=== PATIENT | male | born 1985 | race Hispanic/Latino ===

== ENCOUNTER 2018-10-24 13:25 | Emergency (ER) | payer MEDICAID, OTHER ==
[2018-10-24 14:16] LABS: BUN/Creatinine Ratio 19; Blood Urea Nitrogen 13 mg/dL (9-20); Calcium 9.2 mg/dL (8.4-10.2); Hemolysis Index 12
[2018-10-24 14:19] LABS: Basophils % (Auto) 0.2 % (0.0-1.8); Eosinophils # (Auto) 0.2 K/mm3 (0.0-0.4); Eosinophils % (Auto) 1.1 % (0.0-4.3); Hematocrit 46.1 % (35.5-45.6); Hemoglobin 15.1 gm/dl (11.8-15.2); Lymphocytes # (Auto) 2.3 K/mm3 (1.2-5.4); Lymphocytes % (Auto) 16.3 % (13.4-35.0); Mean Corpuscular HGB Conc 33 % (32-34); Mean Corpuscular Volume 96 fl (84-94); Monocytes # (Auto) 1.1 K/mm3 (0.0-0.8); Monocytes % (Auto) 7.5 % (0.0-7.3); Platelet Count 283 K/mm3 (140-440); Red Cell Distribution Width 14.2 % (13.2-15.2)
--- NOTE | 2018-10-24 14:44 | Emergency Department Report ---
ED Psych HPI - General Chief Complaint: Psych Stated Complaint: MH/HEARING VOICES Time Seen by Provider: 10/24/18 14:30 Source: patient Mode of arrival: Ambulatory Limitations: No Limitations - History of Present Illness Initial Comments: Patient is a 33-year-old male that presents to emergency room with complaints of auditory hallucinations and suicidal ideation without plan. Patient states his plan is to overdose. Patient states had a lot of problems with drugs and since quitting taking drugs her months ago he has been hearing voices and having thoughts of hurting himself. Patient states been off his psychiatric medications for years. Patient denies chest pain shortness of breath. Patient denies physical complaint. Patient denies visual hallucinations. MD Complaint: suicidal ideation, feels depressed -: Sudden Associated Psychiatric Symptoms: depression, suicidal ideation, auditory hallucinations History of same: Yes Quality: constant Improves With: none Worsens With: none Context: not taking psychiatric Associated Symptoms: denies other symptoms. denies: confusion, headache, shortness of breath, nausea, vomiting, syncope, insomnia Treatments Prior to Arrival: placed on mental he If Self Harm: admits thoughts of, has plan - Related Data Home Medications Medication Instructions Recorded Confirmed Last Taken BUPRENORPHINE hcl [Subutex] 8 mg SL TID 03/06/16 03/06/16 Unknown Citalopram [celeXA] 10 mg PO QDAY 03/06/16 03/06/16 Unknown Diazepam [Valium] 10 mg PO TID 03/06/16 03/06/16 Unknown risperiDONE [RisperDAL] 1 mg PO QDAY 03/06/16 03/06/16 Unknown Previous Rx's Medication Instructions Recorded Last Taken Type Citalopram [celeXA] 10 mg PO QDAY #30 tablet 03/06/16 Unknown Rx risperiDONE [RisperDAL] 1 mg PO QDAY #30 tablet 03/06/16 Unknown Rx Allergies Allergy/AdvReac Type Severity Reaction Status Date / Time No Known Allergies Allergy Verified 03/06/16 09:50 ED Review of Systems ROS: Stated complaint: MH/HEARING VOICES Other details as noted in HPI Constitutional: denies: chills, fever Eyes: denies: eye pain, eye discharge, vision change ENT: denies: ear pain, throat pain Respiratory: denies: cough, shortness of breath, wheezing Cardiovascular: denies: chest pain, palpitations Endocrine: no symptoms reported Gastrointestinal: denies: abdominal pain, nausea, diarrhea Genitourinary: denies: urgency, dysuria Musculoskeletal: denies: back pain, joint swelling, arthralgia Skin: denies: rash, lesions Neurological: denies: headache, weakness, paresthesias Psychiatric: depression, visual hallucinations, suicidal thoughts. denies: anxiety Hematological/Lymphatic: denies: easy bleeding, easy bruising ED Past Medical Hx - Past Medical History Previous Medical History?: Yes Hx Psychiatric Treatment: Yes (Schizophrenia) Additional medical history: schizophrenia. PTSD. fear of open spaces - Surgical History Past Surgical History?: Yes Additional Surgical History: hernia repair - Family History Family history: no significant - Social History Smoking Status: Current Every Day Smoker Substance Use Type: Heroin, Methamphetamines, Other - Medications Home Medications: Home Medications Medication Instructions Recorded Confirmed Last Taken Type BUPRENORPHINE hcl [Subutex] 8 mg SL TID 03/06/16 03/06/16 Unknown History Citalopram [celeXA] 10 mg PO QDAY 03/06/16 03/06/16 Unknown History Citalopram [celeXA] 10 mg PO QDAY #30 tablet 03/06/16 Unknown Rx Diazepam [Valium] 10 mg PO TID 03/06/16 03/06/16 Unknown History risperiDONE [RisperDAL] 1 mg PO QDAY 03/06/16 03/06/16 Unknown History risperiDONE [RisperDAL] 1 mg PO QDAY #30 tablet 03/06/16 Unknown Rx ED Physical Exam - General Limitations: No Limitations General appearance: alert, in no apparent distress - Head Head exam: Present: atraumatic, normocephalic - Eye Eye exam: Present: normal appearance - ENT ENT exam: Present: mucous membranes moist - Neck Neck exam: Present: normal inspection - Respiratory Respiratory exam: Present: normal lung sounds bilaterally. Absent: respiratory distress - Cardiovascular Cardiovascular Exam: Present: regular rate, normal rhythm. Absent: systolic murmur, diastolic murmur, rubs, gallop - GI/Abdominal GI/Abdominal exam: Present: soft, normal bowel sounds - Rectal Rectal exam: Present: deferred - Extremities Exam Extremities exam: Present: normal inspection - Back Exam Back exam: Present: normal inspection - Neurological Exam Neurological exam: Present: alert, oriented X3 - Psychiatric Psychiatric exam: Present: depressed, suicidal ideation - Skin Skin exam: Present: warm, dry, intact, normal color. Absent: rash ED Course Vital Signs 10/24/18 13:38 Temperature 97.8 F Pulse Rate 106 H Respiratory 18 Rate Blood Pressure 113/78 O2 Sat by Pulse 97 Oximetry - Reevaluation(s) Reevaluation #1: Discussed all results with patient. Patient was understanding. Patient is medically cleared. Patient will remain on a 1013 until accepted to appropriate psychiatric facility. 10/24/18 20:23 ED Medical Decision Making - Lab Data Result diagrams: 10/24/18 13:51 10/24/18 13:51 - Medical Decision Making Patient is 33-year-old male presents emergency room with complaints of suicidal ideation or plan. Patient was placed on 1013. Mental health consult done. Patient will remain on 1013 until accepted to appropriate psychiatric facility. Patient is medically clear. Patient's WBC is elevated and is most likely secondary to stress reaction or psychomotor agitation. Patient has no signs of infection. Patient has no symptoms of infection. - Differential Diagnosis suicidal ideation. Depression. Hallucinations Critical care attestation.: If time is entered above; I have spent that time in minutes in the direct care of this critically ill patient, excluding procedure time. ED Disposition Clinical Impression: Suicidal ideation, Auditory hallucinations Depression Qualifiers: Depression Type: unspecified Qualified Code(s): F32.9 - Major depressive disorder, single episode, unspecified Disposition: [id number]/TX-65 PSY HOSP/PSY UNIT Is pt being admited?: No Does the pt Need Aspirin: No Condition: Stable Referrals: PRIMARY CARE, [Primary Care Provider] - 2-3 Days Time of Disposition: 20:22
[2018-10-24 18:06] LABS: Bilirubin,Urine NEG (Negative); Blood,Urine NEG (Negative); Color,Urine Yellow (Yellow); Mucus,Urine FEW /HPF; Protein,Urine <15 mg/dL mg/dL (Negative); Urobilinogen,Urine < 2.0 mg/dL (<2.0)
[2018-10-24 18:14] LABS: Amphetamine Screen,Urine PRESUMPTIVE NEGATIVE; Benzodiazepines Screen,Urine PRESUMPTIVE NEGATIVE; Cannabinoid Screen,Urine PRESUMPTIVE NEGATIVE; Cocaine Screen,Urine PRESUMPTIVE NEGATIVE; Methadone Screen,Urine PRESUMPTIVE NEGATIVE; Opiate Screen,Urine PRESUMPTIVE NEGATIVE
--- NOTE | 2018-10-25 13:21 | Consultation ---
History of Present Illness - Reason for Consult Consult date: 10/25/18 Reason for consult: Mental Health Evaluation Requesting physician: ADEOLA SHI III - Chief Complaint Chief complaint: "I'm hearing voices" - History of Present Psychiatric Illness 33 y.o. white male who presented to the ER for SI's and and AH's. Today the patient is calm and cooperative during the assessment. He stated that the voices he's hearing have been constant the past several days telling him to kill himself. He stated that the voices has been an issue for him for a while. He stated that the voices was overwhelming yesterday. He stated, 'I don't know what's wrong with me." He stated that he took Risperdal in the past, but have not been complaint with his medication. He denies erratic sleep and a poor appetite. He would confirm or deny excessive energy nor SI's when asked. He denies HI's and VH's. He denies recent recreational drug use and alcohol consumption (etoh). Medications and Allergies Allergies Allergy/AdvReac Type Severity Reaction Status Date / Time No Known Allergies Allergy Verified 03/06/16 09:50 Home Medications Medication Instructions Recorded Confirmed Last Taken Type BUPRENORPHINE hcl [Subutex] 8 mg SL TID 03/06/16 10/25/18 Unknown History Citalopram [celeXA] 10 mg PO QDAY 03/06/16 10/25/18 Unknown History Diazepam [Valium] 10 mg PO TID 03/06/16 10/25/18 Unknown History risperiDONE [RisperDAL] 1 mg PO QDAY #30 tablet 03/06/16 10/25/18 Unknown Rx Past psychiatric history - Past Medical History Past Medical History: No medical history Past Surgical History: No surgical history - past Psychiatric treatment and history psychiatric treatment history: hx of substance abuse and inpatient psy settings in the past. Denies a fam psy hx. - Social History Social history: other (Homeless) Mental Status Exam - Vital signs Last Vital Signs Temp 97.6 F 10/25/18 08:40 Pulse 87 10/25/18 08:32 Resp 14 10/25/18 08:40 BP 109/74 10/25/18 08:32 Pulse Ox 97 10/25/18 08:32 - Exam Narrative exam: MSE: Appearance: calm Behavior: regular eye contact Speech: regular rate and tone Mood: "tired" Affect: congruent to mood Thought Process: circumstantial Thought Content: denies HI's and AVH's Motor Activity: ambulatory Cognition: A/O x3 Insight: variable Judgment: poor Results Result Diagrams: 10/24/18 13:51 10/24/18 13:51 Abnormal lab results 10/24/18 10/24/18 10/24/18 Range/Units 13:51 13:51 13:51 WBC (4.5-11.0) K/mm3 Hct (35.5-45.6) % MCV (84-94) fl [place] % (Auto) (0.0-7.3) % [place] # (0.0-0.8) K/mm3 Seg Neutrophils % (40.0-70.0) % Seg Neutrophils # (1.8-7.7) K/mm3 Creatinine 0.7 L (0.8-1.5) mg/dL Glucose 74 L (75-100) mg/dL Salicylates < 0.3 L (2.8-20.0) mg/dL Acetaminophen < 5.0 L (10.0-30.0) ug/mL 10/24/18 Range/Units 13:51 WBC 14.2 H (4.5-11.0) K/mm3 Hct 46.1 H (35.5-45.6) % MCV 96 H (84-94) fl [place] % (Auto) 7.5 H (0.0-7.3) % [place] # 1.1 H (0.0-0.8) K/mm3 Seg Neutrophils % 74.9 H (40.0-70.0) % Seg Neutrophils # 10.7 H (1.8-7.7) K/mm3 Creatinine (0.8-1.5) mg/dL Glucose (75-100) mg/dL Salicylates (2.8-20.0) mg/dL Acetaminophen (10.0-30.0) ug/mL All other labs normal. Assessment and Plan Assessment and plan: Impression: Unspecified Mood DO with psy features. Today the patient is calm and cooperative during the assessment. UDS is negative. DDx: R/O Bipolar DO, MDD with psychosis Recommendation/Plan: Continue 1013 and start Risperdal 1 mg PO HS for mood/psychosis. Discussed possible metabolic side effects of Risperidal with the patient. Dispo: The patient was referred to inpatient psy services. Will staff with Dr. Amber Mathis.
[2018-10-25] MEDS ORDERED: RisperDAL PO SCH (22:00)
[2018-10-26 07:32] VITALS: BP 107/61
--- NOTE | 2018-10-26 08:37 | Progress Note ---
Subjective - Reason for Consult Consult date: 10/26/18 Reason for consult: Psychiatry Follow-up - Chief Complaint Chief complaint: "The voices are no more" 33 y.o. white male who presented to the ER for SI's and and AH's. Today the patient is calm and cooperative during the assessment. He stated that the voices have "stopped." He stated that he had not been on his medication prior to his arrival to the ER 2 days ago. He stated that he plan to stay compliant with his medication and stay away from "street drugs." He denies Si/HI's and AVH's. He denies any side effects of his medication. Mental Status Exam - Vital signs Last Vital Signs Temp 98.2 F 10/26/18 07:30 Pulse 94 H 10/26/18 07:30 Resp 16 10/26/18 07:30 BP 107/61 10/26/18 07:30 Pulse Ox 97 10/26/18 07:30 - Exam Narrative exam: MSE: Appearance: calm, cooperative Behavior: regular eye contact Speech: regular rate and tone Mood: "much better" Affect: congruent to mood Thought Process: logial Thought Content: denies SI/HI's and AVH's Motor Activity: ambulatory Cognition: A/O x3 Insight: appropriate Judgment: appropriate Assessment and Plan Impression: Unspecified Mood DO with psy features. Today the patient is calm and cooperative during the assessment. UDS is negative. The patient is no threat to self. DDx: R/O Bipolar DO, MDD with psychosis Recommendation/Plan: Rescind 1013 and continue Risperdal 1 mg PO HS for mood/psychosis. Discussed possible metabolic side effects of Risperidal with the patient. Dispo: The patient can follow up with [facility] for outpatient psy services. Will staff with Dr. Amber Mathis.
--- NOTE | 2018-10-26 10:22 | Emergency Department Report ---
Blank Doc - Documentation Documentation: I have reviewed recommendations from psychiatric team. 1013 has been rescinded. Mr. Velasquez was given outpatient resources for psychiatric care. I have arranged discharged disposition.
== END 2018-10-26 10:40 | disposition home or self-care (01) ==
LOC: ED 13:25 → EEVIPCON 13:25 → ED 10-26 10:40
DX: F32.9 Major depressive disorder, single episode, unspecified (principal); F20.9 Schizophrenia, unspecified; F43.10 Post-traumatic stress disorder, unspecified; F17.200 Nicotine dependence, unspecified, uncomplicated; F15.10 Other stimulant abuse, uncomplicated; Z79.899 Other long term (current) drug therapy
CPT/HCPCS: 36415; 80048; 80307; 81001; 85025; 99284; G0480; 80320